=== PATIENT | male | born 1945 | race Two or more races ===

== ENCOUNTER → 2017-02-19 | Outpatient (CLI) | payer MEDICARE, OTHER ==
[~2017-02-19] MED LIST: ALBUTEROL2.5 MG/3 M IH; ASPIRIN EC81 MG PO; CELEXA40 MG PO; COREG DPS12.5 MG PO; FLOMAX DPS0.4 MG PO; FLONASE ALLER15.8 ML NS; GLUCOPHAGE-DPS500 MG PO; GLUCOTROL DPS5 MG PO; LANTUS100 UNITS/ SQ; LASIX DPS40 MG PO; MAXZIDE-25 DPS1 TAB PO; NITROSTAT0.4 MG SL; PRILOSEC DPS20 MG PO; TYLENOL DPS325 MG PO; ZESTRIL DPS5 MG PO; ZOCOR DPS20 MG PO; ZYRTEC DPS10 MG PO
== END | disposition home or self-care (01) ==
LOC: PTH.S 08:30
DX: R19.7 Diarrhea, unspecified (principal)